=== PATIENT | male | born 1985 | race Caucasian/White ===

== ENCOUNTER 2021-10-28 17:00 | Outpatient (RCR) | payer OTHER, SELFPAY ==
--- NOTE | 2021-10-17 17:28 | PTOPEVAL ---
PHYSICAL THERAPY EVALUATION AND PLAN OF CARE Thank you for referring Jasper Pedro to [facility].? The patient is scheduled to be seen for therapy? every other week for a month. Please review, sign, date and return this plan of care SANTOS. I agree with and certify that the following plan of care is medically necessary. Referring Physician Date Attending Provider: Shanita Peters, OVERNIGHT HOUSEPERSON Diagnosis Left knee pain, OA Onset 2months Subjective Information Aches every day. States he is Query Text:As Reported By Patient/ somewhat used to it. Feels a Family lot of popping in the knee. States that it will swell. Usually hurts in the back of the knee and sometimes along the sides. The longer he sits the more it hurts. Hurts first thing in the morning for about an hour. Work is ok because he is moving a lot. Getting on his knees and squatting is painful. Several months ago he felt a pop in the knee - he was able to walk painfully off of it and it did swell. He was given steroids and that took the swelling down. Left Knee(s) Reported Pain Level 1 Pain Description Aching Pain Frequency Acute,Continuous Interventions Used Interventions Used By Clinicians Education,Exercise Other Alleviating Interventions movement and activity Lower Extremity Range of Motion Knee Range of Motion Left Knee Flexion Range of Motion - Active 140 Knee Extension Range of Motion - Active 0 Query Text: Lower Extremity Muscle Strength Testing Hip Strength Left Hip Flexion Strength 5 Normal Hip Extension Strength 4- Good - Hip Abduction Strength 4 Good Hip Strength Comments single leg sit to stand: more difficult on the left with multiple attempts to stand before success Knee Strength Left Knee Flexion Strength 5 Normal Knee Extension Strength 4+ Good + Muscle Length Testing Muscle Length Testing Senthil Test Shortened Muscles Short (R) Rectus Femoris,Short (L) Rectus Femoris Piriformis w/Hip Flexion >90 Degrees (R) Mild Tightness,(R) Moderate Tightness Left Hamstring Length -15 Query Text:(90 - 90 Position) Palpation Assessment Palpation Palpation mildly decrea
--- NOTE | 2021-11-13 11:56 | PCPTNOTE ---
Patient called & cancelled scheduled appointment this date due to being unwell.
--- NOTE | 2021-11-13 17:25 | PCPTNOTE ---
PHYSICAL THERAPY DISCHARGE NOTE Attending Provider: Shanita Peters, AUDITOR APPRAISER Patient:Jasper Pedro Date of :1985 Jasper has been participating in physical therapy to address knee pain. He is participating in home exercise program and reports that his knee pain is well managed and he is sleeping better. Will discharge from PT to independent HEP. Patient?s initial visit was on 10/17/2021 and had a total of 2 visits. Thank you for referring this patient to [facility]. Please review, sign, date and return this discharge summary SANTOS. I have been updated about the patient's current status and I agree with discharge from the above service at this time. Referring Physician Date
== END 2021-11-14 09:30 | disposition home or self-care (01) ==
LOC: ANHPT 17:00
PROVIDERS: PCP Nurse Practitioner Family; Visit Provider Nurse Practitioner Family
DX: M13.862 Other specified arthritis, left knee (principal)
CPT/HCPCS: 97110; 97112; 97161